=== PATIENT | male | born 1945 | race Caucasian/White ===

== ENCOUNTER 2017-06-20 13:32 | Emergency (ER) | payer BC ==
--- NOTE | 2017-06-20 14:15 | Emergency Department Record ---
History of Present Illness - General Chief Complaint: Abdominal Pain Stated Complaint: KNOT RT LOWER ABDOMEN Time Seen by Provider: 06/20/17 14:08 Source: Patient Mode of Arrival: Ambulatory Limitations: No limitations - History of Present Illness Initial Comments: 72 yo male presents with a right groin bulge that has been present for a week. 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 The pain is very mild. More of a vague discomfort. No changes in appetite, urination, bowel movements. No prior hernia surgery. He is otherwise well. MD Complaint: Other Onset/Timin -: Week(s) Location: RLQ Radiation: RLQ Migration to: RLQ Severity: Moderate Severity scale (1-10): 7 Quality: Aching Consistency: Constant Improves With: Nothing Worsens With: Nothing Associated Symptoms: Denies other symptoms - Related Data Allergies Allergy/AdvReac Type Severity Reaction Status Date / Time No Known Drug Allergies Allergy Verified 06/20/17 14:03 Travel Screening - Travel/Exposure Within Last 30 Days Have you traveled within the last 30 days?: No Review of Systems Constitutional: Denies: Chills, Fever, Malaise, Weakness Eyes: Denies: Eye discharge ENT: Denies: Congestion, Throat pain Respiratory: Denies: Cough Cardiovascular: Denies: Chest pain, Syncope Endocrine: Denies: Fatigue Gastrointestinal: Reports: As per HPI, Abdominal pain. Denies: Diarrhea, Nausea , Vomiting Genitourinary: Denies: Dysuria, Frequency, Hematuria Musculoskeletal: Denies: Arthralgia, Back pain, Myalgia Neurological: Denies: Headache, Numbness, Weakness Psychiatric: Denies: Anxiety Hematological/Lymphatic: Denies: Easy bleeding, Easy bruising, Swollen glands Past Medical History - SOCIAL HISTORY Smoking Status: Never smoker Alcohol Use: None Drug Use: Heavy Drug Use Detail:: Marijuana - RESPIRATORY Hx Respiratory Disorders: No - CARDIOVASCULAR Hx Cardio Disorders: Yes Hx Cardiac Cath: Yes Hx Heart Attack: Yes Hx Hypertension: Yes Comment:: stent x1 - NEURO Hx Neuro Disorders: No - GI Hx GI Disorders: Yes Hx Reflux: Yes Hx Ulcer: Yes - Hx Genitourinary Disorders: No - ENDOCRINE Hx Endocrine Disorders: No - MUSCULOSKELETAL Hx Musculoskeletal Disorders: No Comment:: rls - PSYCH Hx Psych Problems: No - HEMATOLOGY/ONCOLOGY Hx Hematology/Oncology Disorders: No Family Medical History Any Significant Family History?: No Physical Exam - General General Appearance: Alert, Oriented x3, Cooperative, No acute distress Limitations: No limitations - Head Head exam: Atraumatic, Normal inspection - Eye Eye exam: Normal appearance. negative: Conjunctival injection, Scleral icterus - ENT ENT exam: Normal exam Ear exam: Normal external inspection Nasal Exam: Normal inspection Mouth exam: Normal external inspection - Neck Neck exam: Normal inspection - Respiratory Respiratory exam: Normal lung sounds bilaterally. negative: Respiratory distress - Cardiovascular Cardiovascular Exam: Regular rate, Normal rhythm, Normal heart sounds - GI/Abdominal GI/Abdominal exam: Soft, Hernia (Visible bulge in the right inguinal area. Soft. Non tender. Easily reduced when he lays down. No pain or tenderness). negative: Distended, Guarding, Rebound, Rigid, Tenderness - Rectal Rectal exam: Deferred - exam: Circumcision, Normal inspection. negative: Scrotal swelling, Testicular tenderness, Urethral discharge - Extremities Extremities exam: Normal inspection, Full ROM, Normal capillary refill. negative: Tenderness - Back Back exam: Denies: CVA tenderness (R), CVA tenderness (L) - Neurological Neurological exam: Alert, Oriented X3 - Psychiatric Psychiatric exam: Normal affect, Normal mood - Skin Skin exam: Dry, Intact, Normal color, Warm Course Vital Signs 06/20/17 14:00 Temperature 97.4 F L Pulse Rate 59 L Respiratory 20 Rate Blood Pressure 148/95 Pulse Ox 98 - Reevaluation(s) Reevaluation #1: 06/20/17 14:17 The patient has a right inguinal hernia. It is soft and non tender. It was easily reduced. I explained to him reasons to return to the ED immediately. I referred him to the Dr Allen [facility] 06/20/17 17:13 Appointment was made for 7:30am Monday in the [facility] Disposition Disposition: Discharge Clinical Impression: Inguinal hernia Disposition: Home, Self-Care Condition: (1) Good Instructions: Inguinal Hernia (ED) Additional Instructions: Return to the ED if the area is painful, vomiting, or any new concerns Lay down relax and apply pressure if it remains out. If you have pain return You will be seen Monday in the Surgery Clinic at 7:30am Referrals: [facility] Special[facility] [Provider Group] Zaki Allen [DOCTOR OF OSTEOPATH] - Forms: Patient Portal Access Time of Disposition: 17:14 Quality - Quality Measures Quality Measures: N/A - Blood Pressure Screening Does Patient Have Any of the Following: No Blood Pressure Classification: Hypertensive Reading Systolic Measurement: 148 Diastolic Measurement: 95 Screening for High Blood Pressure: < Pre-Hypertensive BP, F/U Documented > [ G8950] Pre-Hypertensive Follow-up Interventions: Referral to alternative/primary care provider.
== END 2017-06-20 14:39 | disposition home or self-care (01) ==
LOC: ER 13:32
DX: K40.90 Unilateral inguinal hernia, without obstruction or gangrene, not specified as recurrent (principal); I10 Essential (primary) hypertension; I25.2 Old myocardial infarction
CPT/HCPCS: 99283

== ENCOUNTER 2017-06-25 14:29 | Emergency (ER) | payer BC ==
--- NOTE | 2017-06-25 16:41 | Emergency Department Record ---
History of Present Illness - General Chief Complaint: Abdominal Pain Stated Complaint: ABDOMINAL PAIN,CONSTIPATED Time Seen by Provider: 06/25/17 16:29 Mode of Arrival: Ambulatory - History of Present Illness Initial Comments: patient states he has right thigh pain and a hernia and he is seeing Dr. Allen for the hernia tomorrow and his thigh pain seems more musculoskeletal pain and he stat his BM today was small. Onset/Timin -: Days(s) Severity: Moderate Severity scale (1-10): 10 Quality: Aching, Sharp, Stabbing Consistency: Constant, Intermittent Improves With: Nothing Worsens With: Other - Related Data Home Medications Medication Instructions Recorded Confirmed Last Taken Aspirin 81 mg PO DAILY 06/25/17 06/25/17 1 Day Ago ~06/24/17 Metoprolol Succinate [Toprol Xl] 50 mg PO DAILY 06/25/17 06/25/17 1 Day Ago ~06/24/17 Pantoprazole Sodium [Protonix] 40 mg PO DAILY 06/25/17 06/25/17 1 Day Ago ~06/24/17 Pramipexole Di-HCl [Pramipexole 0.25 mg PO TID 06/25/17 06/25/17 1 Day Ago Dihydrochloride] ~06/24/17 Rosuvastatin Calcium [Crestor] 20 mg PO DAILY 06/25/17 06/25/17 1 Day Ago ~06/24/17 Previous Rx's Medication Instructions Recorded Cyclobenzaprine HCl [Flexeril] 10 mg PO TID #30 tablet 06/25/17 Polyethylene Glycol 3350 [Miralax] 1 packet PO DAILY #1 bottle 06/25/17 Allergies Allergy/AdvReac Type Severity Reaction Status Date / Time No Known Drug Allergies Allergy Verified 06/25/17 15:14 Travel Screening - Travel/Exposure Within Last 30 Days Have you traveled within the last 30 days?: No - Travel/Exposure Within Last Year Have you traveled outside the [place] in the last year?: No - Additonal Travel Details Have you been exposed to anyone with a communicable illness?: No - Travel Symptoms Symptom Screening: None Review of Systems Reviewed: No additional complaints except as noted below Constitutional: Reports: As per HPI. Denies: Chills, Fever, Malaise, Night sweats, Weakness, Weight change Eyes: Reports: As per HPI. Denies: Eye discharge, Eye pain, Photophobia, Vision change ENT: Reports: As per HPI. Denies: Congestion, Dental pain, Ear pain, Epistaxis , Hearing loss, Throat pain Respiratory: Reports: As per HPI. Denies: Cough, Dyspnea, Hemoptysis, Stridor, Wheezes Cardiovascular: Reports: As per HPI. Denies: Arrhythmia, Chest pain, Dyspnea on exertion, Edema, Murmurs, Orthopnea, Palpitations, Paroxysmal nocturnal dyspnea, Rheumatic Fever, Syncope Endocrine: Reports: As per HPI. Denies: Fatigue, Heat or cold intolerance, Polydipsia, Polyuria Gastrointestinal: Reports: As per HPI, Other (right inquinal hernia). Denies: Abdominal pain, Constipation, Diarrhea, Hematemesis, Hematochezia, Melena, Nausea, Vomiting Genitourinary: Reports: As per HPI. Denies: Dysuria, Frequency, Hematuria, Incontinence, Retention, Testicular pain, Testicular mass, Urgency Musculoskeletal: Reports: As per HPI. Denies: Arthralgia, Back pain, Gout, Joint swelling, Myalgia, Neck pain Skin: Reports: As per HPI. Denies: Bruising, Change in color, Change in hair/ nails, Lesions, Pruritus, Rash Neurological: Reports: As per HPI. Denies: Abnormal gait, Confusion, Headache, Numbness, Paresthesias, Seizure, Tingling, Tremors, Vertigo, Weakness Psychiatric: Reports: As per HPI. Denies: Anxiety, Auditory hallucinations, Depression, Homicidal thoughts, Suicidal thoughts, Visual hallucinations Hematological/Lymphatic: Reports: As per HPI. Denies: Anemia, Blood Clots, Easy bleeding, Easy bruising, Swollen glands Past Medical History - SOCIAL HISTORY Smoking Status: Never smoker Alcohol Use: None Drug Use: None - RESPIRATORY Hx Respiratory Disorders: No - CARDIOVASCULAR Hx Cardio Disorders: Yes Hx Cardiac Cath: Yes Hx Heart Attack: Yes Hx Hypertension: Yes Comment:: stent x1 - NEURO Hx Neuro Disorders: No - GI Hx GI Disorders: Yes Hx Reflux: Yes Hx Ulcer: Yes Comment:: new hernia - Hx Genitourinary Disorders: No - ENDOCRINE Hx Endocrine Disorders: No - MUSCULOSKELETAL Hx Musculoskeletal Disorders: No Comment:: rls - PSYCH Hx Psych Problems: No - HEMATOLOGY/ONCOLOGY Hx Hematology/Oncology Disorders: No Family Medical History Any Significant Family History?: Yes Physical Exam - General General Appearance: Alert, Oriented x3, Cooperative, No acute distress - Head Head exam: Normal inspection - Eye Eye exam: Normal appearance, PERRL Pupils: Normal accommodation - ENT ENT exam: Normal exam, Mucous membranes moist, Normal external ear exam, Normal orophraynx, TM's normal bilaterally Ear exam: Normal external inspection. negative: External canal tenderness Nasal Exam: Normal inspection. negative: Discharge, Sinus tenderness Mouth exam: Normal external inspection, Tongue normal Teeth exam: Normal inspection. negative: Dental caries Throat exam: Normal inspection. negative: Tonsillar erythema, Tonsillar exudate - Neck Neck exam: Normal inspection, Full ROM. negative: Tenderness - Respiratory Respiratory exam: Normal lung sounds bilaterally. negative: Respiratory distress - Cardiovascular Cardiovascular Exam: Regular rate, Normal rhythm, Normal heart sounds - GI/Abdominal GI/Abdominal exam: Soft, Normal bowel sounds, Tenderness (right inquinal hernia, ) - Rectal Rectal exam: Deferred - exam: Deferred - Extremities Extremities exam: Normal inspection, Full ROM, Normal capillary refill. negative: Tenderness - Back Back exam: Reports: Normal inspection, Full ROM. Denies: Muscle spasm, Rash noted, Tenderness - Neurological Neurological exam: Alert, Normal gait, Oriented X3, Reflexes normal - Psychiatric Psychiatric exam: Normal affect, Normal mood - Skin Skin exam: Dry, Intact, Normal color, Warm Course Vital Signs 06/25/17 15:20 Temperature 97.8 F Pulse Rate [ 69 Pulse Ox Probe] Respiratory 18 Rate Blood Pressure 129/87 [Left Arm] Pulse Ox 98 Disposition Clinical Impression: Lumbar radiculopathy, Musculoskeletal back pain Hernia, inguinal Qualifiers: Obstruction and gangrene presence: without obstruction or gangrene Laterality: unilateral Recurrence: non-recurrent Qualified Code(s): K40.90 - Unilateral inguinal hernia, without obstruction or gangrene, not specified as recurrent Disposition: Home, Self-Care Instructions: Inguinal Hernia (ED), Low Back Strain (ED), Lumbar Radiculopathy (ED) Additional Instructions: ibuprofen 600 mg three times a day flexeril 10mg three times a day miralax 17 gms per day Prescriptions: Cyclobenzaprine HCl [Flexeril] 10 mg PO TID #30 tablet Polyethylene Glycol 3350 [Miralax] 1 packet PO DAILY #1 bottle Time of Disposition: 16:48 Quality - Quality Measures Quality Measures: N/A - Blood Pressure Screening Does Patient Have Any of the Following: No Blood Pressure Classification: Pre-Hypertensive BP Reading Systolic Measurement: 129 Diastolic Measurement: 87 Screening for High Blood Pressure: < Pre-Hypertensive BP, F/U Documented > [ G8950] Pre-Hypertensive Follow-up Interventions: Referral to alternative/primary care provider.
== END 2017-06-25 17:03 | disposition home or self-care (01) ==
LOC: ER 14:29
DX: M54.16 Radiculopathy, lumbar region (principal); K40.90 Unilateral inguinal hernia, without obstruction or gangrene, not specified as recurrent; I10 Essential (primary) hypertension; I25.2 Old myocardial infarction
CPT/HCPCS: 99282

== ENCOUNTER 2017-07-10 07:37 | Day surgery (SDC) | payer BC ==
[~2017-07-10 07:37] MED LIST: ACETAMINOPHEN 1,000 MG/100 ML BTL IV ONE; CEFAZOLIN 1 Gram 1 GM/50 ML BAG IVPB ONE
[2017-07-10] MEDS ORDERED: HYDROCODONE/APAP 5/325MG TABLET PO ONE (07:38)
[2017-07-10] MEDS ORDERED: GLYCOPYRROLATE 0.2 MG/ML ML IV ONE (07:38)
[2017-07-10] MEDS ORDERED: BUPIVACAINE 0.25% W/EPI MPF 30ML VIAL IVP ONE (07:38)
[2017-07-10] MEDS ORDERED: PROPOFOL 10 MG/ML VIAL IV ONE (07:38)
[2017-07-10] MEDS ORDERED: LIDOCAINE 2% MDV (20MG/ML) 20ML VIAL IV ONE (07:38)
[2017-07-10] MEDS ORDERED: ONDANSETRON HCL IV 4 MG/2 ML VIAL IVP ONE (07:38)
[2017-07-10] MEDS ORDERED: HYDROMORPHONE HCL 2 MG/ML VIAL IV ONE (07:38)
[2017-07-10] MEDS ORDERED: DESFLURANE 240 ML BTL INH ONE (07:38)
[2017-07-10 07:51] LABS: BASO % 0.4 % (0-6); EOS % 4.2 % (0-6); GRAN % 68.9 % (47-80); HEMATOCRIT 38.8 % (42.0-52.0); HEMOGLOBIN 12.8 gm/dl (14.0-18.0); LYMPH % 16.6 % (16-45); MEAN PLATELET VOLUME 8.8 fl (7.4-10.4); MONO % 9.9 % (0-9); PLATELET COUNT 205 K/uL (130-400); RED CELL DISTRIBUTION WIDTH 12.6 % (11.5-14.5); WHITE BLOOD COUNT W/O DIFF 4.8 K/uL (4.2-12.2)
--- NOTE | 2017-07-10 14:50 | Operative Note ---
DATE OF SURGERY: 07/10/2017 Surgeon: Zaki Allen DO PREOPERATIVE DIAGNOSIS: Reducible bilateral inguinal hernias, direct. POSTOPERATIVE DIAGNOSIS: Reducible bilateral inguinal hernias, direct. OPERATION: Open bilateral inguinal herniorrhaphy with mesh. Indication: The patient is an 89-year-old male who presented with pain and bulging in his right inguinal region. He had a fairly sizable reducible right inguinal hernia. He also had a hernia on the left. We did discuss repair. Risks, benefits, and alternatives were discussed. Risks include bleeding, infection, acute or chronic pain recurrence. PROCEDURE: At this time, the patient was taken to the operating room and placed in a supine position. General anesthesia was administered per the department of anesthesia. The patient's inguinal region was shaved of hair and prepped and draped in the usual sterile fashion. At this time, an adequate timeout was performed. His identity was confirmed. Starting on the left, an inguinal block was done medial to the ASIS as well as at the level of the pubic tubercle. A 4 cm oblique incision was made. This was carried down through subcutaneous tissue to the aponeurosis of the external oblique. This was cleaned off. A ghanshyam was made with a scalpel blade. This was enlarged through the superficial inguinal ring with Metzenbaum scissors. Care was taken not to injure the underlying ilioinguinal nerve. At this time, superior and inferior flaps were developed and a [place] was placed on the spermatic cord. This was dissected free from underlying transversalis fascia and retracted laterally with a [place] drain. The floor was inspected and found to be free of any direct herniation. Cremasteric fibers were taken down. There was an indirect hernia sac noted where high ligation was done. At this time, a left-sided Progrip mesh was obtained. This was placed in the floor of the inguinal canal with excellent overlap of the pubic tubercle. Sutures went at the level of the pubic tubercle, second portion of the inguinal ligament, and the internal oblique aponeurosis. Lateral triangle was protected by the lateral aspect of the mesh. At this time, the aponeurosis was closed over the cord with 2-0 Vicryl, the Joanna's layer was closed with 3-0 Vicryl and skin was closed with 4-0 Vicryl. The patient was then turned to the right side where identical procedure was done. Here, the patient had a direct hernia which was repaired by imbricating the floor and mesh was applied. She was taken to the recovery room in satisfactory condition. CC: Palmer HOLDER
== END 2017-07-10 11:20 | disposition home or self-care (01) ==
LOC: SUR 07:37
PROVIDERS: ATTEND Surgery
DX: K40.20 Bilateral inguinal hernia, without obstruction or gangrene, not specified as recurrent (principal); I10 Essential (primary) hypertension; E78.00 Pure hypercholesterolemia, unspecified; K21.9 Gastro-esophageal reflux disease without esophagitis; G25.81 Restless legs syndrome
CPT/HCPCS: 49505; 00830; 85025; J2405; J0690; J1170

== ENCOUNTER 2018-01-02 08:11 | Emergency (ER) | payer BC ==
[2018-01-02] MEDS ORDERED: TOPICAL LIDOCAINE W/ EPI 5 ML TOP ONE (08:16)
--- NOTE | 2018-01-02 08:25 | Emergency Department Record ---
History of Present Illness - General Chief complaint: Nosebleed/epistaxis Stated complaint: NOSE BLEED Time Seen by Provider: 01/02/18 08:16 Source: Patient Mode of Arrival: Ambulatory Limitations: No limitations - History of Present Illness Initial comments: 72 yo male presents with five hours of right nostril bleeding. He had similar bleeding 2 weeks ago. No long history of nose bleeds. He states he is on blood thinner. No other recent changes in his health. MD complaint: Epistaxis -: Hour(s) (5) Location: Nose Severity: Moderate Quality: Other Consistency: Constant Improves with: Other (direct pressure) Worsens with: Medication Context-Epistaxis: Aspirin use - Related Data Previous Rx's Medication Instructions Recorded Cyclobenzaprine HCl [Flexeril] 10 mg PO TID #30 tablet 06/25/17 Polyethylene Glycol 3350 [Miralax] 1 packet PO DAILY #1 bottle 06/25/17 Cephalexin [Keflex] 500 mg PO TID #9 cap 01/02/18 Allergies Allergy/AdvReac Type Severity Reaction Status Date / Time No Known Drug Allergies Allergy Verified 01/02/18 08:15 Review of Systems Constitutional: Denies: Chills, Fever, Malaise, Weakness Eyes: Denies: Eye discharge, Eye pain, Photophobia, Vision change ENT: Reports: As per HPI, Congestion, Epistaxis Respiratory: Denies: Cough, Dyspnea, Wheezes Cardiovascular: Denies: Chest pain, Palpitations, Syncope Endocrine: Denies: Fatigue Gastrointestinal: Denies: Abdominal pain, Diarrhea, Nausea, Vomiting Genitourinary: Denies: Dysuria, Frequency, Hematuria Musculoskeletal: Denies: Arthralgia, Myalgia Skin: Denies: Bruising, Change in color, Rash Neurological: Denies: Headache Psychiatric: Denies: Anxiety Hematological/Lymphatic: Denies: Anemia, Blood Clots, Easy bleeding, Easy bruising, Swollen glands Past Medical History - SOCIAL HISTORY Smoking Status: Never smoker - RESPIRATORY Hx Respiratory Disorders: No - CARDIOVASCULAR Hx Cardio Disorders: Yes Hx Cardiac Cath: Yes Hx Heart Attack: Yes Hx Hypertension: Yes (on meds good control) Hx Coronary Artery Disease: Yes Hx Coronary Stent: Yes - NEURO Hx Neuro Disorders: No - GI Hx GI Disorders: Yes Hx Abdominal Pain: Yes (inguinal area into right leg) Hx Reflux: Yes Hx Ulcer: Yes - Hx Genitourinary Disorders: No - ENDOCRINE Hx Endocrine Disorders: No - MUSCULOSKELETAL Hx Musculoskeletal Disorders: Yes Hx Arthritis: Yes (fingers) Comment:: rls - PSYCH Hx Psych Problems: No - HEMATOLOGY/ONCOLOGY Hx Hematology/Oncology Disorders: No Family Medical History Hx Heart Disease: Father, Grandparents Physical Exam - General General Appearance: Alert, Oriented x3, Cooperative, No acute distress Limitations: No limitations - Head Head exam: Atraumatic, Normal inspection - Eye Eye exam: Normal appearance, PERRL. negative: Conjunctival injection, Scleral icterus - ENT ENT exam: Normal exam, Mucous membranes moist, Normal orophraynx Ear exam: Normal external inspection Nasal Exam: Dried blood. negative: Active bleeding Mouth exam: Normal external inspection Throat exam: Normal inspection - Neck Neck exam: Normal inspection, Full ROM. negative: Tenderness - Respiratory Respiratory exam: Normal lung sounds bilaterally. negative: Respiratory distress, Rhonchi, Stridor, Wheezes - Cardiovascular Cardiovascular Exam: Regular rate, Normal rhythm, Normal heart sounds - GI/Abdominal GI/Abdominal exam: Soft. negative: Tenderness - Rectal Rectal exam: Deferred - exam: Deferred - Extremities Extremities exam: Normal inspection, Full ROM, Normal capillary refill. negative: Tenderness - Neurological Neurological exam: Alert, Oriented X3 - Psychiatric Psychiatric exam: negative: Agitated, Anxious - Skin Skin exam: Dry, Intact, Normal color, Warm Course - Reevaluation(s) Reevaluation #1: Clotted blood in the right nostril on examination TLE soaked cotton placed 01/02/18 08:25 01/02/18 08:48 The TLE was removed. The nasal septum has slight oozing. This area was cauterized gently. TLE was placed. 01/02/18 09:05 A Rhinorocket was placed in the left nostril. No immediate active bleeding. 01/02/18 09:29 The patient bleed around the Rhinorocket after a prolonged sneezing episode. It was replaced with cotton soaked with TXA. No current anterior or posterior bleeding. 01/02/18 09:49 Recheck. No active bleed. TXA on cotton replaced. 01/02/18 10:14 A replacement Rhinorocket with TXA placed. No immediate bleeding. Disposition Disposition: Discharge Clinical Impression: Epistaxis Disposition: Home, Self-Care Condition: (1) Good Instructions: Nosebleed (ED) Additional Instructions: Return if you have bleeding around the packing Return if you have fever, pain, or shortness of breath Return or see your doctor in three days to have the packing removed Prescriptions: Cephalexin [Keflex] 500 mg PO TID #9 cap Forms: Patient Portal Access Time of Disposition: 10:20 Quality - Quality Measures Quality Measures: N/A - Blood Pressure Screening Does Patient Have Any of the Following: Active Dx of HTN Blood Pressure Classification: Pre-Hypertensive BP Reading Systolic Measurement: 139 Diastolic Measurement: 89 Screening for High Blood Pressure: Patient Exclusion, Hx of HTN [G9744]
[2018-01-02] MEDS ORDERED: TRANEXAMIC ACID 1,000 MG/10 ML ML TOP ONE (09:14)
== END 2018-01-02 10:30 | disposition home or self-care (01) ==
LOC: ER 08:11
DX: R04.0 Epistaxis (principal); I10 Essential (primary) hypertension
CPT/HCPCS: 30901 ×2; 99283 ×2; J3490

== ENCOUNTER 2019-01-22 09:16 | Emergency (ER) | payer BC ==
--- NOTE | 2019-01-22 11:20 | ULTRASOUND REPORT ---
EXAMINATION: Right Lower Extremity Venous Duplex Doppler Ultrasound EXAM DATE: 01/22/2019 11:09 AM TECHNIQUE: Real-time B-mode imaging with and without compression was used to evaluate the right lowe r extremity for deep venous thrombosis (DVT). Duplex Doppler with color and spectral Doppler was use d. INDICATION: Right lower extremity pain swelling COMPARISON: None FINDINGS: Right Common Femoral Vein: No DVT. Right Femoral Vein: No DVT. Right Popliteal Vein: No DVT. Right Proximal Deep Femoral Vein: No DVT. Right Posterior Tibial Veins: No DVT. Right Peroneal Veins: No DVT. Right proximal Great Saphenous Vein: No thrombus. Duplex Doppler: Spectral Doppler waveforms show normal respiratory phasicity in the common femoral vein. Additional Findings: None. IMPRESSION: There is no deep venous thrombosis in the visualized deep veins of the right lower extremity. Dictated by: Lamonte Garcia DO on 01/22/2019 11:17 AM. .
--- NOTE | 2019-01-22 11:31 | Emergency Department Record ---
History of Present Illness - General Chief complaint: Lower Extremity Pain Stated complaint: THINKS HE HAS A BLOOD CLOT Time Seen by Provider: 01/22/19 09:41 Source: Patient Mode of Arrival: Ambulatory Limitations: No limitations - History of Present Illness Initial comments: pt is c/o pain and swelling in r leg. he recently had a hip replacement. he is worried that he has a blood clot MD Complaint: Extremity pain, Extremity swelling Onset/Timin -: Week(s) Location: Right, Lower Leg Improves with: Nothing Worsens with: Nothing - Related Data Allergies Allergy/AdvReac Type Severity Reaction Status Date / Time No Known Drug Allergies Allergy Unverified 12/18/18 07:32 Travel Screening - Travel/Exposure Within Last 30 Days Have you traveled within the last 30 days?: No - Travel/Exposure Within Last Year Have you traveled outside the [place] in the last year?: No - Additonal Travel Details Have you been exposed to anyone with a communicable illness?: No - Travel Symptoms Symptom Screening: None Review of Systems Reviewed: No additional complaints except as noted below Constitutional: Reports: As per HPI. Denies: Chills, Fever, Malaise, Night sweats, Weakness, Weight change Eyes: Reports: As per HPI. Denies: Eye discharge, Eye pain, Photophobia, Vision change ENT: Reports: As per HPI. Denies: Congestion, Dental pain, Ear pain, Epistaxis, Hearing loss, Throat pain Respiratory: Reports: As per HPI. Denies: Cough, Dyspnea, Hemoptysis, Stridor, Wheezes Cardiovascular: Reports: As per HPI. Denies: Arrhythmia, Chest pain, Dyspnea on exertion, Edema, Murmurs, Orthopnea, Palpitations, Paroxysmal nocturnal dyspnea, Rheumatic Fever, Syncope Endocrine: Reports: As per HPI. Denies: Fatigue, Heat or cold intolerance, Polydipsia, Polyuria Gastrointestinal: Reports: As per HPI. Denies: Abdominal pain, Constipation, Diarrhea, Hematemesis, Hematochezia, Melena, Nausea, Vomiting Genitourinary: Reports: As per HPI. Denies: Dysuria, Frequency, Hematuria, Incontinence, Retention, Testicular pain, Testicular mass, Urgency Musculoskeletal: Reports: As per HPI. Denies: Arthralgia, Back pain, Gout, Joint swelling, Myalgia, Neck pain Skin: Reports: As per HPI. Denies: Bruising, Change in color, Change in hair/nails, Lesions, Pruritus, Rash Neurological: Reports: As per HPI. Denies: Abnormal gait, Confusion, Headache, Numbness, Paresthesias, Seizure, Tingling, Tremors, Vertigo, Weakness Psychiatric: Reports: As per HPI. Denies: Anxiety, Auditory hallucinations, Depression, Homicidal thoughts, Suicidal thoughts, Visual hallucinations Hematological/Lymphatic: Reports: As per HPI. Denies: Anemia, Blood Clots, Easy bleeding, Easy bruising, Swollen glands Past Medical History - SOCIAL HISTORY Smoking Status: Never smoker Alcohol Use: None Drug Use: Heavy Drug Use Detail:: Marijuana - RESPIRATORY Hx Respiratory Disorders: No - CARDIOVASCULAR Hx Cardio Disorders: Yes Hx Cardiac Cath: Yes Hx Heart Attack: Yes Hx Hypertension: Yes (on meds good control) Hx Coronary Artery Disease: Yes Hx Coronary Stent: Yes - NEURO Hx Neuro Disorders: No - GI Hx GI Disorders: Yes Hx Abdominal Pain: Yes (inguinal area into right leg) Hx Reflux: Yes Hx Ulcer: Yes - Hx Genitourinary Disorders: No - ENDOCRINE Hx Endocrine Disorders: No - MUSCULOSKELETAL Hx Musculoskeletal Disorders: Yes Hx Arthritis: Yes (fingers) Comment:: rls - PSYCH Hx Psych Problems: No - HEMATOLOGY/ONCOLOGY Hx Hematology/Oncology Disorders: No Family Medical History Any Significant Family History?: No Hx Heart Disease: Father, Grandparents Physical Exam - General General Appearance: Alert, Oriented x3, Cooperative, No acute distress - Head Head exam: Normal inspection - Eye Eye exam: Normal appearance, PERRL, EOMI Pupils: Normal accommodation - ENT ENT exam: Normal exam, Mucous membranes moist, Normal external ear exam, Normal orophraynx Ear exam: Normal external inspection. negative: External canal tenderness Nasal Exam: Normal inspection. negative: Discharge, Sinus tenderness Mouth exam: Normal external inspection, Tongue normal Teeth exam: Normal inspection. negative: Dental caries Throat exam: Normal inspection. negative: Tonsillar erythema, Tonsillar exudate - Neck Neck exam: Normal inspection, Full ROM. negative: Tenderness - Respiratory Respiratory exam: Normal lung sounds bilaterally. negative: Respiratory distress - Cardiovascular Cardiovascular Exam: Regular rate, Normal rhythm, Normal heart sounds - GI/Abdominal GI/Abdominal exam: Soft, Normal bowel sounds. negative: Tenderness - Rectal Rectal exam: Deferred - exam: Deferred - Extremities Extremities exam: Calf tenderness, Full ROM, Normal capillary refill, Tenderness (r calf), Other (swelling of r calf) - Back Back exam: Reports: Normal inspection, Full ROM. Denies: Muscle spasm, Rash noted, Tenderness - Neurological Neurological exam: Alert, Normal gait, Oriented X3, Reflexes normal - Psychiatric Psychiatric exam: Normal affect, Normal mood - Skin Skin exam: Dry, Intact, Normal color, Warm Course Vital Signs 01/22/19 01/22/19 09:17 11:01 Temperature 97.9 F Pulse Rate 64 Pulse Rate [ 65 Pulse Ox Probe] Respiratory 18 18 Rate Blood Pressure 144/86 Blood Pressure 126/83 [Left Arm] Pulse Ox 97 95 Disposition Disposition: Discharge Clinical Impression: Swelling of calf Disposition: Home, Self-Care Condition: (1) Good Instructions: Leg Edema (ED) Additional Instructions: elevate leg. follow up with family doctor. return sooner if worse Quality - Quality Measures Quality Measures: N/A - Blood Pressure Screening Does Patient Have Any of the Following: No Blood Pressure Classification: Pre-Hypertensive BP Reading Systolic Measurement: 144 Diastolic Measurement: 86 Screening for High Blood Pressure: < Pre-Hypertensive BP, F/U Documented > [[id number]] Pre-Hypertensive Follow-up Interventions: Follow-up with rescreen every year.
== END 2019-01-22 11:47 | disposition home or self-care (01) ==
LOC: ER 09:16
DX: R22.42 Localized swelling, mass and lump, left lower limb (principal); M79.661 Pain in right lower leg; Z96.641 Presence of right artificial hip joint; I10 Essential (primary) hypertension; I25.2 Old myocardial infarction
CPT/HCPCS: 99283